=== PATIENT | female | born 1980 | race Caucasian/White ===

== ENCOUNTER 2018-02-03 13:13 | Outpatient (CLI) | payer BC | END 2018-02-03 13:14 | disposition home or self-care (01) | LOC: SC 13:13 | PROVIDERS: ATTEND Internal Medicine Pulmonary Disease | DX: G47.10 Hypersomnia, unspecified (principal) | CPT/HCPCS: 99203; 99212 ==

== ENCOUNTER 2018-04-08 19:36 | Outpatient (CLI) | payer BC | END 2018-04-08 19:37 | disposition home or self-care (01) | LOC: SC 19:36 | PROVIDERS: ATTEND Internal Medicine Pulmonary Disease | DX: G47.61 Periodic limb movement disorder (principal) | CPT/HCPCS: 95810 ==